=== PATIENT | male | born 1995 | race Caucasian/White ===

== ENCOUNTER 2023-12-10 21:24 | Emergency (ER) | payer OTHER ==
[~2023-12-10] VITALS: Ht 175.3 cm; Wt 78.0 kg
[2023-12-10 21:25] VITALS: BP 137/91; PULSE 70; RESP 16; TEMP 98.1; O2SAT 98
[2023-12-10] MEDS ORDERED: IBUP-2213 PO (23:19)
== END 2023-12-10 23:51 | disposition home or self-care (01) ==
LOC: MED 21:24
DX: S60.221A Contusion of right hand, initial encounter (principal); Z79.1 Long term (current) use of non-steroidal anti-inflammatories (NSAID); Z88.0 Allergy status to penicillin; X50.9XXA Other and unspecified overexertion or strenuous movements or postures, initial encounter; Y93.89 Activity, other specified; Y92.89 Other specified places as the place of occurrence of the external cause; Y99.8 Other external cause status
CPT/HCPCS: 73130; 99283